=== PATIENT | female | born 1975 | race Caucasian/White ===

== ENCOUNTER → 2024-09-21 10:06 | Outpatient (BNVA) | payer OTHER, SELFPAY | PROVIDERS: Family Provider Nurse Practitioner; Visit Provider Clinical Nurse Specialist Adult Health | DX: R25.2 Cramp and spasm (principal); N95.1 Menopausal and female climacteric states; D51.0 Vitamin B12 deficiency anemia due to intrinsic factor deficiency; F41.1 Generalized anxiety disorder; F32.9 Major depressive disorder, single episode, unspecified | CPT/HCPCS: 80053; 82306; 82607; 83735; 84439; 84443; 84481; 85025 ==

== ENCOUNTER 2024-12-09 13:48 | Outpatient (CLI) | payer OTHER, SELFPAY ==
--- NOTE | 2024-12-09 13:52 | MM_ITS ---
WS: [id number] BILATERAL SCREENING DIGITAL TOMOSYNTHESIS MAMMOGRAM WITH CAD HISTORY: SCREENING COMPARISON: None available. Bilateral CC and MLO views with tomosynthesis and synthetic mammography submitted. Computer aided detection analyzed. Breast composition: The breasts are heterogeneously dense, which may obscure small masses. No suspicious masses, microcalcifications or architectural distortion. MM/MM scr BI tomosynthesis 24201 IMPRESSION: BI-RADS: 1 - Negative FOLLOW UP: 1 Year Follow-up
== END 2024-12-09 13:49 | disposition home or self-care (01) ==
LOC: RAD 13:49
PROVIDERS: PCP Internal Medicine; Visit Provider Internal Medicine
DX: Z12.31 Encounter for screening mammogram for malignant neoplasm of breast (principal); R92.333 Mammographic heterogeneous density, bilateral breasts
CPT/HCPCS: 77063; 77067